=== PATIENT | female | born 1930 ===

== ENCOUNTER → 2017-01-30 | Outpatient (REF) | payer MEDICARE ==
[2017-01-30 19:09] LABS: PERCENT SATURATION 15.4 % (13.2-37.4)
== END ==
LOC: M LAB REF 17:38
PROVIDERS: ATTEND Internal Medicine Nephrology
DX: D50.9 Iron deficiency anemia, unspecified (principal)

== ENCOUNTER → 2017-06-05 | Outpatient (REF) | payer MEDICARE | LOC: M LAB REF 17:20 | PROVIDERS: ATTEND Internal Medicine Nephrology | DX: N25.81 Secondary hyperparathyroidism of renal origin (principal); Z79.899 Other long term (current) drug therapy ==

== ENCOUNTER → 2018-04-02 | Outpatient (REF) | payer MEDICARE ==
[2018-04-02 19:06] LABS: FERRITIN 193 NG/ML (8-252); IRON (FE) 44 UG/DL (50-170); PERCENT SATURATION 20.9 % (13.2-45.0); TOTAL IRON BINDING CAPACITY 211 UG/DL (250-450)
== END ==
LOC: M LAB REF 17:25
DX: D50.9 Iron deficiency anemia, unspecified (principal)
CPT/HCPCS: 83550